=== PATIENT | female | born 1945 | race Caucasian/White ===

== ENCOUNTER 2020-03-07 07:21 | Day surgery (SDC) | payer MEDICARE, BC, SELFPAY ==
[2020-02-27 10:57] VITALS: BMI 22.0
[2020-03-07] VITALS (7 sets, daily range): BP systolic 88–141; BP diastolic 50–77; PULSE 68–80; RESP 16; TEMP 36.7–37.2; O2SAT 97–99; BMI 21.4
[2020-03-07] MEDS: Lactated Ringers 1,000 ML 100 ML IV (08:00)
--- NOTE | 2020-03-07 08:30 | EGD_PTH ---
PATIENT: ANGELLA NELSON LOC: [facility] U#:[id number] AGE/SX: 74/F ROOM: RE03/07/[address]: Dr. Jesus Shipman MD : 1945 BED: DIS: 03/07/2020 SPEC #: [id number] RECD: 03/07/20 10:00 STATUS: VERÓNICA GABRIELRayne #: [id number] ABELARDO: 03/07/20 08:[address]: Jesus Shipman DEPT: SURGICAL PATHOLOGY RECD BY: Brisa Claros ENTERED: 03/07/20 11:22 SP TYPE: EGD BIOPSY OTHR DR: Dr. Krystal Hernández DO Tissues: A - Duodenum, NOS B - Gastric mucous membrane C - Esophagus, NOS D - Esophagus, NOS Procedures: Special Stain Group II Surgery Specimen Level IV Alcian Blue/PAS (control) HEADER OPERATION: EGD ([facility] [place]) PRE-OP DIAGNOSIS: Indigestion TISSUE SUBMITTED: A - Duodenal biopsy, B - Antrum biopsy for H. pylori and path, C - Distal esophagus biopsy, D - Mid esophagus biopsy MICROSCOPIC DIAGNOSIS A. Duodenum, biopsy: No pathologic change. B. Gastric antrum, biopsy: Chronic gastritis. See comment. C. Distal esophagus, biopsy: Gastroesophageal junction mucosa with mild chronic inflammation. No evidence of goblet cell metaplasia. See comment. D. Mid esophagus, biopsy: Fragments of benign squamous mucosa. No evidence of inflammation. AM:walker 03/10/2020 COMMENT B. The results of immunohistochemistry for Helicobacter pylori will be reported separately ([id number]). C. Alcian blue/PAS stain with matched control supports the above diagnosis. MICROSCOPIC DESCRIPTION Slides are reviewed. GROSS DESCRIPTION A - Received in fixative is one container labeled with the patient's name and designated duodenum biopsy. The specimen consists of one irregular fragment of light jensen soft tissue that measures 0.5 x 0.2 x 0.1 cm. The specimen is totally submitted in one cassette. B - Received in fixative is one container labeled with the patient's name and designated antrum biopsy. The specimen consists of one irregular fragment of light jensen soft tissue that measures 0.3 x 0.2 x 0.1 cm. The specimen is totally submitted in one cassette. C - Received in fixative is one container labeled with the patient's name and designated distal esophagus biopsy. The specimen consists of two irregular fragments of light jensen soft tissue that in aggregate measure 0.7 x 0.5 x 0.1 cm. The specimen is totally submitted in one cassette. D - Received in fixative is one container labeled with the patient's name and designated mid esophagus biopsy. The specimen consists of one irregular fragment of light jensen soft tissue that measures 0.6 x 0.5 x <0.1 cm. The specimen is totally submitted in one cassette. / AM:walker 03/07/20 TC:3 CPT: 26888 x4, 05900
--- NOTE | 2020-03-07 08:30 | IMM_PTH ---
PATIENT: ANGELLA NELSON LOC: [facility] U#:[id number] AGE/SX: 74/F ROOM: RE03/07/[address]: Dr. Jesus Shipman MD : 1945 BED: DIS: 03/07/2020 SPEC #: [id number] RECD: 03/07/20 11:43 STATUS: VERÓNICA REQ #: [id number] ABELARDO: 03/07/20 08:[address]: Jesus Shipman DEPT: IMMUNOHISTOCHEMISTRY RECD BY: Mary Grace Ball ENTERED: 03/07/20 11:45 SP TYPE: IMMUNO OTHR DR: Dr. Krystal Hernández, DO Tissues: B - Stomach, NOS Procedures: H Pylori (initial) PHYSICIAN & INSTITUTION [place] [address] SPECIMEN INFORMATION: Tissue Source: B - Antrum biopsy Clinical Info: Indigestion Specimen Number: [id number] CPT code: 76717 METHODOLOGY: Deparaffinized sections of prefer/formalin-fixed tissue or PAP/DQ stained slides are incubated with monoclonal/polyclonal antibodies/oligonucleotide probes. Localization is made via biotin free immunoperoxidase method. Appropriate controls are performed and reacted as expected. Results on target cell population are indicated in the following table: RESULTS: ANTIBODY / CLONE RESULT Block B H Pylori (polyclonal) negative These tests were developed and their performance characteristics determined by [facility]. They may not have been cleared or approved by the U.S. Food and Drug Administration. The FDA has determined that such clearance or approval is not necessary. INTERPRETATION: B. Antrum, biopsy: Negative for Helicobacter pylori organisms. AM:walker 03/10/2020
--- NOTE | 2020-03-07 09:22 | PCM.HP.BLA ---
Problem List (1) Indigestion Status: Acute History and Physical Date of Admission: 03/07/20 Intake Visit Reasons: Discuss EGD/Weight Loss Chief Complaint: weight loss, abd pain Loan Consultant Required: No Is patient in pain?: No Allergies acetaminophen [From Darvocet-N] Allergy (Verified 02/06/16 10:06) Unknown aspirin [From Fiorinal] Allergy (Verified 02/06/16 10:06) Unknown butalbital [From Fiorinal] Allergy (Verified 02/06/16 10:06) Unknown caffeine [From Fiorinal] Allergy (Verified 02/06/16 10:06) Unknown chlorpromazine [From Thorazine] Allergy (Verified 02/06/16 10:06) Unknown etodolac [From Lodine] Allergy (Verified 02/06/16 10:06) Unknown Gadolinium-MRI Contrast Medium Allergy (Verified 02/06/16 10:06) Other hydrocodone [From Vicodin] Allergy (Verified 02/06/16 10:06) Unknown methylprednisolone [From Solu-Medrol] Allergy (Verified 02/06/16 10:06) Unknown nabumetone [From Relafen] Allergy (Verified 02/06/16 10:06) Unknown prednisone Allergy (Verified 02/06/16 10:06) Other promethazine [From Phenergan] Allergy (Verified 02/06/16 10:06) Unknown propoxyphene [From Darvocet-N] Allergy (Verified 02/06/16 10:06) Unknown verapamil Allergy (Verified 02/06/16 09:59) Unknown ibuprofen Adverse Reaction (Verified 02/06/16 10:06) Upset Stomach KEYA-60 Allergy (Uncoded 02/06/16 10:06) Unknown Medications Calcium Carbonate [Tums] 500 mg PO Q6H PRN PRN 08/22/15 [History Confirmed 02/27/20] Potassium Chloride [K-Dur] 20 meq PO BID #60 tab 08/22/15 [Rx Confirmed 02/27/20] Aspirin/Acetaminophen/Caffeine [Excedrin Extra Strength Caplet] 1 ea PO PRN PRN 02/06/16 [History Confirmed 02/27/20] ascorbic acid (vitamin C) 1,000 mg tablet 1 g PO Q6H 02/27/20 [History Confirmed 02/27/20] glucosamine-chondroitin 250 mg-200 mg tablet 2 tab PO TID 02/27/20 [History] magnesium oxide 400 mg PO DAILY 02/27/20 [History Confirmed 02/27/20] multivitamin 1 tab PO DAILY 02/27/20 [History Confirmed 02/27/20] omega-3 fatty acids 1,000 mg capsule 1,000 mg PO DAILY 02/27/20 [History Confirmed 02/27/20] pantoprazole 40 mg tablet,delayed release 40 mg PO DAILY tab 02/27/20 [History Confirmed 02/27/20] vitamin B complex 1 cap PO DAILY 02/27/20 [History Confirmed 02/27/20] Is last menstrual period known: No Post menopausal: Yes Patient : No PFSH Medical History (Updated 02/27/20 @ 11:[address] Jesus Shipman MD) Indigestion (Acute) Lung nodule (Acute) Vitamin D deficiency (Acute) Dysphagia (Acute) Lymphadenopathy (Acute) History of breast cancer (Acute) Unintentional weight loss (Acute) Cervical radiculopathy (Acute) History of supraventricular tachycardia (Chronic) Benign essential hypertension (Chronic) Surgical History (Updated 02/27/20 @ 10:56 by Roxi Faust) History of ventral hernia repair (Acute ~2017) History of tubal ligation (Acute) History of lumpectomy (Acute) History of hysterectomy (Acute) History of hemorrhoidectomy (Acute) History of esophagogastroduodenoscopy (EGD) (Acute) History of dilation and curettage (Acute) History of cardiac catheterization (Acute) History of breast biopsy (Acute) History of appendectomy (Acute) History of colonoscopy (Acute ~2019) Family History Father CVA (cerebral vascular accident) Sister Colon cancer Social History (Updated 02/27/20 @ 11:[address] Jesus Shipman MD) Smoking Status: Never smoker HPI HPI HPI: ANGELLA NELSON, is a 74 F who presents to the office today for surgical consultation regarding retrosternal discomfort and burning sensation and concerns this may be contributing to her weight loss. She was referred by Dr. Krystal Hernández and a written copy of my surgical consult and recommendations will be returned to her.. The patient reports that she has had a previous colonoscopy with polypectomy which according to her demonstrated some degree of malignancy within the polyp but completely resected. She states that she did not require any additional surgical treatment of the colon nor any additional adjuvant treatment. She also 2013 had a left breast lumpectomy. 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 She received radiotherapy but according to her no additional treatment. She has had a variety of concerns. She complains of left lower quadrant discomfort and right lower quadrant discomfort and a palpable mass in the epigastrium and retrosternal burning discomfort and burning discomfort extending right through the midline of her abdomen down to the pubic bone is if she has a urinary tract infection. January 24, 2020 Dr. Govind Mary at [facility] performed a colonoscopy. This was done at patient request with no sedative. A 3 mm polyp was seen in the ascending:. Some hemorrhoids noted. The pathology showed colonic mucosa with no pathologic diagnosis. Repeat colonoscopy at 5 years recommended. It is of additional note that previously February 10, 2016 because of a symptomatic right lower quadrant ventral incisional hernia related to a very remote open appendectomy I performed a incisional herniorrhaphy. The patient had requested that no clips be used and that no mesh be used. I performed the repair with simple sutures of #1 Nurolon. Fortunately she has not had any evidence of recurrence. She is being expressly referred for consideration as to whether she would benefit from a esophagogastroduodenoscopy. The patient states that approximately December 2019 she had a PET scan performed from a mobile unit that came to [facility]. I do not have the report of that study. The patient states that she periodically gets them because she has a family history of colon cancer. She states that she has had a 30 pound weight loss though there may be some suggestion that recently she has gained back a few pounds. For her retrosternal discomfort she does use some Pepto-Bismol. She denies documented history of peptic ulcer disease HPI HPI HPI: ANGELLA NELSON, is a 74 F who presents to the office today for ROS General General: Yes weight change, appetite and fatigue; no colon cancer, breast cancer or weakness HEENT HEENT: No difficulty swallowing, eye injury, eye surgery, swollen glands or hoarseness Endo Endocrine: No thyroid disease, diabetes mellitus, thyroid cancer, Hair loss, heat intolerance or cold intolerance Musc Musculoskeletal: Yes arthritis; no back problems, rheumatoid arthritis, gout or joint pain Cardio Cardiovascular: Yes heart disease and high blood pressure; no murmur, pacemaker, atrial fibrillation, heart attack, heart stent, palpitations, shortness of breat with exertion or chest pain Psych Psychiatric: No depression, anxiety or hearing voices Resp Respiratory: No shortness of breath, No sleep apnea, No cough, No COPD, No asthma, No emphysema, No wheezing Gastro Gastrointestinal: Yes abdominal pain, Yes nausea or vomiting, No diarrhea, No constipation, No blood in stool, No acid reflux, No hemorrhoids, No ulcers, No gallbladder problem, No black,tarry stools Brent Hematologic: No blood thinners, No blood disorders, No bleeding, No anemia, No blood clots Neuro Neurologic: No weakness Exam Const General: cooperative, healthy appearing, comfortable, no acute distress Nutritional Appearance: underweight Orientation: alert, awake HENLA Head: normal to inspection Chest Chest palpation & inspection: normal inspection of the chest Resp Effort & Inspection: normal respiratory effort Auscultation: clear to auscultation bilaterally Cardio Rate: regular rate Rhythm: regular rhythm Heart Sounds: no murmurs GI Palpation: soft, no hepatosplenomegaly Auscultation: normal bowel sounds Other: Patient is examined both upright and supine. She has scarring in the right lower quadrant but no evidence of rerecurrent incisional hernia At the area of left lower quadrant discomfort I can feel no masses or weakness At the epigastric area overlying the xiphoid process she has a 1.5 to 2 cm diameter rubbery mobile subcutaneous fibrofatty mass. This does not feel like a hernia. The remainder of her abdominal exam is quite benign Skin General: no rashes or lesions noted Neuro Cognition: normal cognition Extrem General: no calf tenderness Psych Affect: animated Assessment & Plan Problems 1. Indigestion K30 Plan Etiology of the patient's retrosternal discomfort in total burning discomfort throughout the entire mid abdomen is not clear. I would concur that she would benefit from a esophagogastroduodenoscopy. I would anticipate very careful inspection of the duodenum antrum GE junction as well as entire esophagus. I would anticipate biopsies for H. pylori and eosinophilic esophagitis. The patient initially requested that this be performed with no anesthetic. That makes me somewhat uncomfortable and I think it would be difficult to achieve that without having her coughing and uncomfortable. I have proposed for her monitored anesthesia care with very light utilization of propofol as well as generous oral topical anesthetic. She is aware of the technique, benefit, risk, alternatives. She has had an opportunity to ask and have questions answered. We will schedule and proceed at her discretion. She will then have ongoing primary care follow-up with Dr. Hernández Copy: Dr. Krystal Shipman M.D., F.A.C.S. I have re-examined the patient. There are no clinical changes since date of exam. Procedure Criteria Procedure Type: Elective COVID Risk Discussion: The surgeon/proceduralist and patient have discussed in detail the risk of exposure to and/or potential harm posed by the COVID-19 virus with having a surgery/procedure at this time versus the risk of delaying the surgery/procedure. It is not possible to know either the risk of delaying the surgery or procedure or chance of getting an infection with perfect accuracy, but a joint decision was made between the patient and the surgeon/proceduralist to proceed at this time with the scheduled surgery/procedure as indicated on the consent form.
--- NOTE | 2020-03-07 09:50 | OP.CCLET_ITS ---
03/07/2020 Krystal Hernández Do Re : Upper GI endoscopy procedure for Lyly Mac Dear Edgar This procedure was performed on Saturday, March 07, 2020. My impressions and recommendations are as follows: Impressions : - Reflux esophagitis. Biopsied. - Normal mid esophagus. Biopsied. - Small hiatal hernia. - Erythematous mucosa in the antrum. Biopsied. - Normal examined duodenum. Biopsied. Recommendations : - Await pathology results. - Repeat upper endoscopy. - Resume previous diet. - Continue present medications. - Telephone my office for pathology results in 1 week. My findings are described in the full procedure note, which is enclosed. If I can be of further assistance, please feel free to contact me at Doctor phone number(s): Work: . Sincerely, Jesus Shipman MD 03/07/2020 9:50:11 AM This report has been signed electronically.
--- NOTE | 2020-03-07 09:50 | OP.EGD_ITS ---
Patient Name: Lyly Mac Procedure Date: 03/07/2020 9:21 AM Date of : 1945 Age: 74 Procedure: Upper GI endoscopy Indications: Heartburn Providers: Jesus Shipman MD Referring MD: Krystal Hernández Do Medicines: See the Anesthesia note for documentation of the administered medications Complications: No immediate complications. Procedure: Pre-Anesthesia Assessment: - Prior to the procedure, a History and Physical was performed, and patient medications and allergies were reviewed. The patient's tolerance of previous anesthesia was also reviewed. The risks and benefits of the procedure and the sedation options and risks were discussed with the patient. All questions were answered, and informed consent was obtained. Prior Anticoagulants: The patient has taken no previous anticoagulant or antiplatelet agents. ASA Grade Assessment: II - A patient with mild systemic disease. After reviewing the risks and benefits, the patient was deemed in satisfactory condition to undergo the procedure. After obtaining informed consent, the endoscope was passed under direct vision. Throughout the procedure, the patient's blood pressure, pulse, and oxygen saturations were monitored continuously. The gastroscope was introduced through the mouth, and advanced to the second part of duodenum. The upper GI endoscopy was accomplished without difficulty. The patient tolerated the procedure well. Scope In: 9:36:22 AM Scope Out: 9:44:11 AM Total Procedure Duration Time 0 hours 7 minutes 49 seconds Findings: Esophagitis with no bleeding was found 38 cm from the incisors. Biopsies were taken with a cold forceps for histology. The mid esophagus was normal. Biopsies were taken with a cold forceps for histology. A small hiatal hernia was present. Diffuse mildly erythematous mucosa without bleeding was found in the gastric antrum. Biopsies were taken with a cold forceps for histology. The examined duodenum was normal. Biopsies were taken with a cold forceps for histology. Impression: - Reflux esophagitis. Biopsied. - Normal mid esophagus. Biopsied. - Small hiatal hernia. - Erythematous mucosa in the antrum. Biopsied. - Normal examined duodenum. Biopsied. Recommendation: - Await pathology results. - Repeat upper endoscopy. - Resume previous diet. - Continue present medications. - Telephone my office for pathology results in 1 week. Procedure Code(s): --- Professional --- 28283, Esophagogastroduodenoscopy, flexible, transoral; with biopsy, single or multiple Diagnosis Code(s): --- Professional --- K21.0, Gastro-esophageal reflux disease with esophagitis K44.9, Diaphragmatic hernia without obstruction or gangrene K31.89, Other diseases of stomach and duodenum R12, Heartburn CPT copyright 2017 [employer]. All rights reserved. The codes documented in this report are preliminary and upon prescription clerk lenses review may be revised to meet current compliance requirements. Jesus Shipman MD 03/07/2020 9:50:11 AM This report has been signed electronically. Number of Addenda: 0 Note Initiated On: 03/07/2020 9:21 AM
== END 2020-03-07 10:42 | disposition home or self-care (01) ==
LOC: EN 07:21 → AC 07:21
PROVIDERS: PCP Internal Medicine; Referring Provider Internal Medicine; Visit Provider Surgery
PROC: 0DJ08ZZ Inspection of Upper Intestinal Tract, Via Natural or Artificial Opening Endoscopic (ICD-10-PCS; CPT 43235; principal; 2020-03-07 08:25)
DX: K21.00 Gastro-esophageal reflux disease with esophagitis, without bleeding (principal); K44.9 Diaphragmatic hernia without obstruction or gangrene; K31.89 Other diseases of stomach and duodenum; K30 Functional dyspepsia; Z79.82 Long term (current) use of aspirin; Z80.0 Family history of malignant neoplasm of digestive organs; Z88.5 Allergy status to narcotic agent; Z88.6 Allergy status to analgesic agent; Z88.8 Allergy status to other drugs, medicaments and biological substances; I10 Essential (primary) hypertension
CPT/HCPCS: 43239; 87426; 88305; 88313; 88342; C9803; J7120; J2405

== ENCOUNTER → 2020-06-17 11:22 | Outpatient (CLI) | payer MEDICARE, BC, SELFPAY ==
[2020-06-17 09:50] VITALS: BMI 21.4
[2020-06-17 11:28] LABS: Bacteria 0 SEEN /hpf (None Seen); White Blood Cells 0 SEEN /hpf (0-5)
[2020-06-17 12:04] LABS: Absolute Lymphocyte Count 1.34 X10^3/uL (0.83-4.51); Absolute Neutrophil Count 2.4 X10^3/uL (2.0-7.7); Basophil# 0.04 X10^3/uL; Eosinophils% 2.4 % (0-5); Hematocrit 41.2 % (37-47); Hemoglobin 13.3 g/dL (12.0-15.0); Lymphocyte # 1.34 X10^3/ul (0.83-4.51); Lymphocyte % 32.1 % (19-41); Mean Corp Hgb Conc 32.3 g/dL (32-36); Mean Corpuscular Hgb 30.6 pg (27.0-32.0); Mean Corpuscular Volume 94.9 fL (81-99); Monocyte# 0.27 X10^3/uL; Monocyte% 6.5 % (0-10); NRBC Flagged by Analyzer 0 % (0-5); Neutrophil # 2.41 X10^3/uL (2.7-7.7); Neutrophil % 57.8 % (47-70); Platelet Count 208 K/mm3 (150-450); RBC Distribution Width SD 45.7 fl (35.1-43.9); Red Blood Count 4.34 M/mm3 (4.2-5.4); White Blood Count 4.2 K/mm3 (4.4-11.0)
[2020-06-17 12:32] LABS: ALB/GLOB Ratio 1.2 RATIO (0.9-2.4); AST(SGOT) 24 U/L (15-37); Alanine Aminotransfer ALT/SGPT 21 U/L (13-56); Alkaline Phosphatase 109 U/L (45-117); Anion Gap 6 (5-15); BUN 16 mg/dL (7-18); Calcium,Total 9.6 mg/dL (8.5-10.1); Chloride 104 mmol/L (98-107); EST Glomerular Filtration Rate 74 mL/min (>60); Est Glom Filt Rate - Afr Amer 90 mL/min (>60); Globulin 3.3 g/dL (2.2-4.2); Glucose 113 mg/dL (74-106); Potassium 3.7 mmol/L (3.5-5.1); Protein, Total 7.3 g/dL (6.4-8.2); Sodium Level 143 mmol/L (136-145)
[2020-06-17 12:44] LABS: Color, Urine Yellow (Yellow); Glucose, Dipstick Normal (Normal); Ketone-Dipstick 5 mg/dl (Negative); Leukocyte Esterase-Dipstick Negative /ul (Negative); Nitrite-Dipstick Negative (Negative); Occult Blood-Urine 50 /ul (Negative); Protein-Dipstick 15 mg/dl (Negative); Specific Gravity, Urine 1.015 (1.002-1.030); Urine Bilirubin Dipstick Negative (Negative); Urine Clarity Sl. Cloudy (Clear); Urine Urobilinogen Normal (Normal)
[2020-06-17 12:52] LABS: Mucous, Urine 1+ /hpf (<or=2+); Red Blood Cells-Urine 0-5 SEEN /hpf (0-5); Squamous Epithelial Cells - UA 0-5 SEEN /hpf (5-10)
== END ==
PROVIDERS: PCP Internal Medicine; Referring Provider Physician Assistant; Visit Provider Physician Assistant
DX: R43.2 Parageusia (principal); R10.9 Unspecified abdominal pain
CPT/HCPCS: 36415; 80053; 81001; 85025

== ENCOUNTER → 2020-06-18 14:59 | Outpatient (CLI) | payer MEDICARE, BC, SELFPAY ==
[2020-06-17 09:50] VITALS: BMI 21.4
== END ==
PROVIDERS: PCP Internal Medicine; Visit Provider Physician Assistant
DX: R43.2 Parageusia (principal)
CPT/HCPCS: 87635; C9803; U0002

== ENCOUNTER → 2020-11-27 16:07 | Outpatient (CLI) | payer MEDICARE, BC, SELFPAY ==
[2020-03-07 08:10] VITALS: BMI 21.4
--- NOTE | 2020-11-27 16:09 | BI_ITS ---
MAMMOGRAPHY - BILATERAL SCREENING REASON FOR EXAM: Female, 75 years old. Routine annual screening examination. PERTINENT HISTORY: Personal history of breast cancer. Prior left lumpectomy and radiation therapy. Prior left stereotactic breast biopsy. Sister with breast cancer. Aunt with breast cancer. TECHNIQUE: Digital bilateral breast evan (3D mammographic acquisition) in the CC and MLO projections. 2-D mediolateral oblique (MLO) and craniocaudad (CC) views of both breasts were obtained. CAD: Full Field Digital Mammography with Computer Added Detection was performed. COMPARISON: Comparison is made with prior study dated 09/08/2016. FINDINGS: Breast Composition: There are scattered areas of fibroglandular density. There are no dominant masses or suspicious calcifications. Surgical clips are seen in the deep axillary region of the left breast. Calcification is seen at the operative site. There is evidence of overlying skin thickening. No other significant abnormalities are identified. BI/SCRN MAMM (CAD)W/EVAN BILAT IMPRESSION: Status post lumpectomy in the deep upper lateral aspect of the left breast with postoperative changes and dense calcification at the operative site. Yearly follow-up mammogram recommended. (A) ASSESSMENT CATEGORY: BIRADS Category 2: Benign. A letter regarding these results will be sent to the patient by the facility within 30 days. Approximately 10% of breast cancers are not detected by mammography. A normal mammogram should not delay biopsy of a clinically suspicious abnormality. [id number] Electronically Signed: Jeff Garcia MD at 10:25 EDT , Service support ,
== END ==
PROVIDERS: PCP Internal Medicine; Referring Provider Nurse Practitioner; Visit Provider Nurse Practitioner
DX: Z12.31 Encounter for screening mammogram for malignant neoplasm of breast (principal); C50.412 Malignant neoplasm of upper-outer quadrant of left female breast; Z17.0 Estrogen receptor positive status [ER+]
CPT/HCPCS: 77063; 77067

== ENCOUNTER 2021-02-18 14:39 | Outpatient (CLI) | payer MEDICARE, BC, SELFPAY ==
--- NOTE | 2021-02-18 14:43 | CT_ITS ---
STUDY: CT ABDOMEN AND PELVIS WITHOUT CONTRAST REASON FOR EXAM: Female, 75 years old. Abdominal pain -- special attention to xyphoid RLQ abdominal wall. History of prior right lower quadrant ventral hernia repair. RADIATION DOSAGE (If Supplied By Facility): CTDIvol = ( 6.10 ) mGy, DLP = ( 266.71 ) mGycm TECHNIQUE: Transaxial images were obtained from the dome of the diaphragm to the symphysis pubis without oral contrast, and without intravenous contrast. Sagittal and coronal images were reconstructed. Individualized dose optimization techniques were used for this CT. COMPARISON: Comparison is made with prior study dated 12/01/2015. FINDINGS: The visualized lung bases are unremarkable. The visualized portions of the heart are within normal limits. The previously seen cyst along the medial peripheral aspect of the right lobe of the liver has decreased in size. It presently measures 6.3 mm. Normal gallbladder and extrahepatic biliary system. Normal spleen. Normal pancreas. Normal bilateral adrenal glands. Punctate calcification in the upper pole of the right kidney. Stable punctate calcification in the anterior pole calyx of the left kidney. Normal visualized stomach. Normal small intestine. Normal colon. The patient is status post appendectomy. There is diffuse atherosclerotic calcification of the abdominal aorta, without a demonstrated aneurysm. Normal inferior vena cava. Normal retroperitoneum. Normal urinary bladder. There is absence of the uterus consistent with a prior hysterectomy. There is evidence of a prior hernia repair in the anterior right lower quadrant. There are diffuse degenerative changes of the visualized lumbar spine. Minimal anterior listhesis of L5 on S1. CT/Abdomen/Pel W ORAL Cont Only IMPRESSION: Interval decrease in size of the peripheral cyst in the left lobe of the liver. Status post anterior abdominal wall hernia repair in the left lower quadrant. Electronically Signed: Jeff Garcia MD at 15:13 EST , Service support ,
== END 2021-02-18 23:59 | disposition short-term general hospital (02) ==
LOC: CT 14:42
PROVIDERS: Referring Provider Surgery; Visit Provider Surgery
DX: R10.9 Unspecified abdominal pain (principal)
CPT/HCPCS: 74176

== ENCOUNTER 2021-03-11 06:02 | Day surgery (SDC) | payer MEDICARE, BC, SELFPAY ==
--- NOTE | 2021-03-10 10:16 | EKG12_ITS ---
Test Reason : PRE OP Blood Pressure : / mmHG Vent. Rate : 079 BPM Atrial Rate : 079 BPM P-R Int : 146 ms QRS Dur : 072 ms QT Int : 382 ms P-R-T Axes : 082 076 074 degrees QTc Int : 438 ms Normal sinus rhythm Normal ECG Confirmed by DUYEN GASTELUM, JUANA ([id number]), editor news JULIAN PINTO ([id number]) on 03/11/2021 7:23:40 AM Referred By: Jesus Shipman Confirmed By:JUANA GELLER MD
[2021-03-10 11:16] LABS: Hematocrit 36.1 % (37-47); Hemoglobin 11.8 g/dL (12.0-15.0); Mean Corp Hgb Conc 32.7 g/dL (32-36); Mean Corpuscular Hgb 31.1 pg (27.0-32.0); Mean Corpuscular Volume 95.3 fL (81-99); Mean Platelet Vol. 10.9 fl (6.2-12.0); Platelet Count 184 K/mm3 (150-450); RBC Distribution Width CV 13.2 % (11.6-14.6); RBC Distribution Width SD 45.9 fl (35.1-43.9); Red Blood Count 3.79 M/mm3 (4.2-5.4); White Blood Count 3.4 K/mm3 (4.4-11.0)
[2021-03-10 11:53] LABS: Anion Gap 5 (5-15); BUN 16 mg/dL (7-18); BUN/Creat Ratio 22.4 RATIO (10-20); Calcium,Total 9.3 mg/dL (8.5-10.1); Chloride 108 mmol/L (98-107); Creatinine, Serum 0.71 mg/dL (0.55-1.02); EST Glomerular Filtration Rate 85 mL/min (>60); Est Glom Filt Rate - Afr Amer 102 mL/min (>60); Glucose 108 mg/dL (74-106); Potassium 3.8 mmol/L (3.5-5.1); Sodium Level 142 mmol/L (136-145)
--- NOTE | 2021-03-10 15:12 | NURSING ---
NURSE CALLED TAMERA SLADE'S OFFICE FOR UA RESULTS. OFFICE STAFF STATES UA IS NEGATIVE. DR AKINS'S OFFICE NOTIFIED OF RESULT
[2021-03-11] VITALS (10 sets, daily range): BP systolic 121–173; BP diastolic 62–85; PULSE 65–78; RESP 16–18; TEMP 36.2–36.9; O2SAT 93–100; BMI 19.5
--- NOTE | 2021-03-11 | HERN_PTH ---
PATIENT: ANGELLA NELSON [place] [facility] [place] U#:[id number] AGE/SX: 75/F ROOM: RE03/11/[address]: Dr. Jesus Shipman MD : 1945 BED: DIS: 03/11/2021 SPEC #: [id number] RECD: 03/11/21 12:31 STATUS: VERÓNICA PAPPAS #: [id number] ABELARDO: 03/11/21 00:[address]: Jesus Shipman DEPT: SURGICAL PATHOLOGY RECD BY: Nick Dumont Tissues: HERNIA Procedures: Surgery Specimen Level II HEADER OPERATION: Hernia, epigastric ventral repair with mesh PRE-OP DIAGNOSIS: Epigastric hernia, abdominal pain TISSUE SUBMITTED: Epigastric hernia sac and contents MICROSCOPIC DIAGNOSIS Soft tissue of epigastric region, excision: Fragments of fibrofatty tissue consistent with hernia sac. AM:walker 03/12/2021 MICROSCOPIC DESCRIPTION Slides are reviewed. GROSS DESCRIPTION Received in fixative is one container labeled with the patient's name and designated epigastric hernia sac. The specimen consists of multiple irregular fragments of yellow-pink fibrofatty tissue that in aggregate measure 3 x 3 x 1 cm. Serial sections do not reveal mass lesion. Product Development Engineer sections are submitted in one cassette. / AM:walker 03/11/2021 TC:5 CPT: 68348
--- NOTE | 2021-03-11 06:40 | HP.PCM_ITS ---
History and Physical Date of Admission: 03/11/21 Visit Reasons: DISCUSS CT RESULTS Chief Complaint: discuss CT Butcher Supervisor Required: No Is patient in pain?: No Allergies acetaminophen [From Darvocet-N] Allergy (Verified 03/03/21 10:06) Unknown aspirin [From Fiorinal] Allergy (Verified 03/03/21 10:06) Unknown butalbital [From Fiorinal] Allergy (Verified 03/03/21 10:06) Unknown caffeine [From Fiorinal] Allergy (Verified 03/03/21 10:06) Unknown chlorpromazine [From Thorazine] Allergy (Verified 03/03/21 10:06) Unknown etodolac [From Lodine] Allergy (Verified 03/03/21 10:06) Unknown Gadolinium-MRI Contrast Medium Allergy (Verified 03/03/21 10:06) Other hydrocodone [From Vicodin] Allergy (Verified 03/03/21 10:06) Unknown methylprednisolone [From Solu-Medrol] Allergy (Verified 03/03/21 10:06) Unknown nabumetone [From Relafen] Allergy (Verified 03/03/21 10:06) Unknown prednisone Allergy (Verified 03/03/21 10:06) Other promethazine [From Phenergan] Allergy (Verified 03/03/21 10:06) Unknown propoxyphene [From Darvocet-N] Allergy (Verified 03/03/21 10:06) Unknown verapamil Allergy (Verified 03/03/21 10:06) Unknown ibuprofen Adverse Reaction (Verified 03/03/21 10:06) Upset Stomach KEYA-60 Allergy (Uncoded 06/17/20 10:04) Unknown Medications calcium carbonate 500 mg PO Q6H PRN PRN 08/22/15 [History Confirmed 03/03/21] potassium chloride 20 meq PO BID #60 tab 08/22/15 [Rx Confirmed 03/03/21] lsbztfh-ruzjrffjlevxe-jaefncfx 1 ea PO PRN PRN 02/06/16 [History Confirmed 03/03/21] ascorbic acid (vitamin C) 1,000 mg tablet 1 g PO DAILY 02/27/20 [History Confirmed 03/03/21] glucosamine-chondroitin 250 mg-200 mg tablet 2 tab PO BID 02/27/20 [History Confirmed 03/03/21] magnesium oxide 400 mg PO DAILY 02/27/20 [History Confirmed 03/03/21] multivitamin 1 tab PO DAILY 02/27/20 [History Confirmed 03/03/21] omega-3 fatty acids 1,000 mg capsule 1,000 mg PO DAILY 02/27/20 [History Confirmed 03/03/21] vitamin B complex 1 cap PO DAILY 02/27/20 [History Confirmed 03/03/21] Leg Cramps Pm 1 tab SUBLINGUAL QHS PRN PRN 03/03/20 [History Confirmed 03/03/21] cholecalciferol (vitamin D3) 25 mcg PO DAILY 03/03/20 [History Confirmed ] cetirizine 10 mg tablet 10 mg PO DAILY tab 06/17/20 [History Confirmed 03/03/21] Is last menstrual period known: No Post menopausal: Yes Patient : No PFSH Medical History Abdominal pain Altered taste Benign essential hypertension Cervical radiculopathy Dysphagia History of breast cancer History of supraventricular tachycardia Indigestion Lung nodule Lymphadenopathy Unintentional weight loss Vitamin D deficiency Surgical History History of appendectomy History of breast biopsy History of cardiac catheterization History of colonoscopy (~2019) History of dilation and curettage History of esophagogastroduodenoscopy (EGD) History of hemorrhoidectomy History of hysterectomy History of lumpectomy History of tubal ligation History of ventral hernia repair (~2016) Family History Father CVA (cerebral vascular accident) Colon cancer Diabetes Sister Colon cancer Grandfather Colon cancer Aunt Colon cancer Mother Heart disease Social History Smoking Status: Never smoker alcohol intake: never substance use type: does not use HPI HPI HPI: ANGELLA NELSON, is a 75 F who presents to the office today for surgical follow-up of a subxiphoid tender palpable mass. I had recommended that we pursue an outpatient abdominal pelvic CT scan because of the epigastric discomfort and the shooting discomfort in the right lower quadrant. On my review of the CT scan there is a epigastric ventral hernia involving the linea alba. This is not commented upon in the CT interpretation. I also see evidence of a previous right lower quadrant spigelian hernia repair. I do not personally see any evidence of recurrence in this location. The patient is very much concerned about this epigastric area. She is also concerned about weight loss. The CT does not demonstrate findings in that regard. 02/18/2021 STUDY: CT ABDOMEN AND PELVIS WITHOUT CONTRAST REASON FOR EXAM: Female, 75 years old. Abdominal pain -- special attention to xyphoid RLQ abdominal wall. History of prior right lower quadrant ventral hernia repair. RADIATION DOSAGE (If Supplied By Facility): CTDIvol = ( 6.10 ) mGy, DLP = ( 266.71 ) mGycm TECHNIQUE: Transaxial images were obtained from the dome of the diaphragm to the symphysis pubis without oral contrast, and without intravenous contrast. Sagittal and coronal images were reconstructed. Individualized dose optimization techniques were used for this CT. COMPARISON: Comparison is made with prior study dated 12/01/2015. FINDINGS: The visualized lung bases are unremarkable. The visualized portions of the heart are within normal limits. The previously seen cyst along the medial peripheral aspect of the right lobe of the liver has decreased in size. It presently measures 6.3 mm. Normal gallbladder and extrahepatic biliary system. Normal spleen. Normal pancreas. Normal bilateral adrenal glands. Punctate calcification in the upper pole of the right kidney. Stable punctate calcification in the anterior pole calyx of the left kidney. Normal visualized stomach. Normal small intestine. Normal colon. The patient is status post appendectomy. There is diffuse atherosclerotic calcification of the abdominal aorta, without a demonstrated aneurysm. Normal inferior vena cava. Normal retroperitoneum. Normal urinary bladder. There is absence of the uterus consistent with a prior hysterectomy. There is evidence of a prior hernia repair in the anterior right lower quadrant. There are diffuse degenerative changes of the visualized lumbar spine. Minimal anterior listhesis of L5 on S1. CT/Abdomen/Pel W ORAL Cont Only IMPRESSION: Interval decrease in size of the peripheral cyst in the left lobe of the liver. Status post anterior abdominal wall hernia repair in the left lower quadrant. Electronically Signed: Jeff Garcia MD at 15:13 EST My previous note of 02/10/2021 reflect the following Intake Visit Reasons: Hernia Chief Complaint: hernia Butcher Supervisor Required: No Is patient in pain?: No Allergies acetaminophen [From Darvocet-N] Allergy (Verified 02/10/21 15:19) Unknown aspirin [From Fiorinal] Allergy (Verified 02/10/21 15:19) Unknown butalbital [From Fiorinal] Allergy (Verified 02/10/21 15:19) Unknown caffeine [From Fiorinal] Allergy (Verified 02/10/21 15:19) Unknown chlorpromazine [From Thorazine] Allergy (Verified 02/10/21 15:19) Unknown etodolac [From Lodine] Allergy (Verified 02/10/21 15:19) Unknown Gadolinium-MRI Contrast Medium Allergy (Verified 02/10/21 15:19) Other hydrocodone [From Vicodin] Allergy (Verified 02/10/21 15:19) Unknown methylprednisolone [From Solu-Medrol] Allergy (Verified 02/10/21 15:19) Unknown nabumetone [From Relafen] Allergy (Verified 02/10/21 15:19) Unknown prednisone Allergy (Verified 02/10/21 15:19) Other promethazine [From Phenergan] Allergy (Verified 02/10/21 15:19) Unknown propoxyphene [From Darvocet-N] Allergy (Verified 02/10/21 15:19) Unknown verapamil Allergy (Verified 02/10/21 15:19) Unknown ibuprofen Adverse Reaction (Verified 02/10/21 15:19) Upset Stomach KEYA-60 Allergy (Uncoded 06/17/20 10:04) Unknown Medications calcium carbonate 500 mg PO Q6H PRN PRN 08/22/15 [History Confirmed 02/10/21] potassium chloride 20 meq PO BID #60 tab 08/22/15 [Rx Confirmed 02/10/21] ciongiy-bbniizbmqcuot-fhjzfpet 1 ea PO PRN PRN 02/06/16 [History Confirmed 02/10/21] ascorbic acid (vitamin C) 1,000 mg tablet 1 g PO DAILY 02/27/20 [History Confirmed 02/10/21] glucosamine-chondroitin 250 mg-200 mg tablet 2 tab PO BID 02/27/20 [History Confirmed 02/10/21] magnesium oxide 400 mg PO DAILY 02/27/20 [History Confirmed 02/10/21] multivitamin 1 tab PO DAILY 02/27/20 [History Confirmed 02/10/21] omega-3 fatty acids 1,000 mg capsule 1,000 mg PO DAILY 02/27/20 [History Co nfirmed 02/10/21] vitamin B complex 1 cap PO DAILY 02/27/20 [History Confirmed 02/10/21] Leg Cramps Pm 1 tab SUBLINGUAL QHS PRN PRN 03/03/20 [History Confirmed 02/10/21] cholecalciferol (vitamin D3) 25 mcg PO DAILY 03/03/20 [History Confirmed 02/10/21] cetirizine 10 mg tablet 10 mg PO DAILY tab 06/17/20 [History Confirmed 02/10/21] PFSH Medical History Abdominal pain Altered taste Benign essential hypertension Cervical radiculopathy Dysphagia History of breast cancer History of supraventricular tachycardia Indigestion Lung nodule Lymphadenopathy Unintentional weight loss Vitamin D deficiency Surgical History History of appendectomy History of breast biopsy History of cardiac catheterization History of colonoscopy (~2019) History of dilation and curettage History of esophagogastroduodenoscopy (EGD) History of hemorrhoidectomy History of hysterectomy History of lumpectomy History of tubal ligation History of ventral hernia repair (~2016) Family History (Updated 02/10/21 @ 15:18 by Elsie Tuesday) Father CVA (cerebral vascular accident) Colon cancer Diabetes Sister Colon cancer Grandfather Colon cancer Aunt Colon cancer Mother Heart disease Social History (Updated 02/10/21 @ 15:19 by Elsie Tuesday) Smoking Status: Never smoker alcohol intake: never substance use type: does not use HPI HPI HPI: ANGELLA NELSON, is a 75 F who presents to the office today for for surgical consultation regarding a very tender area just below her xiphoid.. 75-year-old female. Recently complex. She has had a very long-term history of chronic abdominal pain. She was most recently seen in our office June 17, 2020 by Josefa Marti PA-C for ongoing chronic abdominal pain. Her CT scan of the abdomen pelvis and MRI the abdomen and from the outside facility was reviewed with an adrenal adenoma but no acute findings. February 2020 I had performed an upper endoscopy for demonstrating some gastritis and distal esophagitis. H. pylori was negative. She was instructed to take Protonix and Carafate. It becomes apparent that she is not been compliant with that. She stated in June that she had lost 47 pounds unintentionally. She is not aware that she has had COVID-19. She has not pursued vaccination. On this occasion she contacted the office yesterday noting acute tenderness herniation superior to her umbilicus. ROS General General: Yes weight change, fatigue, colon cancer and breast cancer; No appetite or weakness Additional Details: Lost 25lb in a year. Believes she had colon CA. States she had a breast biopsy done in the past but is unsure of the results. HEENT HEENT: Yes eye surgery; No difficulty swallowing, eye injury, swollen glands or hoarseness Additional Details: Cataract surgery Endo Endocrine: No thyroid disease, diabetes mellitus, thyroid cancer, Hair loss, heat intolerance or cold intolerance Skin Skin: No rash or changing moles Musc Musculoskeletal: No back problems, arthritis, rheumatoid arthritis, gout or joint pain Cardio Cardiovascular: No murmur, pacemaker, heart disease, atrial fibrillation, high blood pressure, heart attack, heart stent, palpitations, shortness of breat with exertion or chest pain Psych Psychiatric: No depression, anxiety or hearing voices Resp Respiratory: No shortness of breath, No sleep apnea, No cough, No COPD, No asthma, No emphysema and No wheezing Gastro Gastrointestinal: Yes abdominal pain, No nausea or vomiting, No diarrhea, No constipation, No blood in stool, No acid reflux, No hemorrhoids, No ulcers, No gallbladder problem and No black,tarry stools Additional Details: Pt states she is having bright yellow stool Brent Hematologic: No blood thinners, No blood disorders, No bleeding, No anemia and No blood clots Neuro Neurologic: No system reviewed and no additional complaints, except as documented, No as per HPI, No abnormal gait, No abnormal hearing, No abnormal movements, No abnormal speech, No behavioral changes, No burning sensations, No confusion, No convulsions, No disequilibrium, No dizziness, No localized weakness, No frequent falls, No headache(s), No lack of coordination, No loss of vision, No memory loss, No numbness, No other visual disturbances, No radicular pain, No restless legs, No sensory deficit, No syncope, No tingling, No tremor(s), No weakness and No other Exam Resp Effort & Inspection: normal respiratory effort Auscultation: clear to auscultation bilaterally Cardio Rate: regular rate Rhythm: regular rhythm GI Other: The patient is examined upright and supine. Just at the inferior edge of her xiphoid process there is a 1.2 cm diameter rubbery fibrous tenderness which is more prominent with her being upright and less prominent for sure when she is supine. It is tender when she is upright. There is no erythema. The right lower quadrant area at the suture repair of her spigelian hernia has some slightly overlapping subcutaneous skin. She is complaining of shooting p ain but I cannot detect any focal defect in that area. Other: With nursing in attendance throughout I cannot tacked any inguinal weakness or defect or tenderness bilaterally Assessment and Plan Assessment and Plan (1) Hernia: (2) Abdominal pain: Status: Acute Qualifiers: Abdominal location: epigastric Qualified Code(s): R10.13 - Epigastric pain Plan Details Other Orders: Orders: Abdomen/Pel W ORAL Cont Only Today R10.9 Additional Comments: Epigastric abdominal pain superficial localized just inferior to the xiphoid process. Possible lipoma though concerning for possible small ventral hernia Shooting pain right lower quadrant with radiation down the right leg of undetermined etiology. No inguinal defects identified. I cannot detect any suggestion of recurrent right lower quadrant spigelian hernia At this point I recommend an oral contrasted CT scan with careful inspection of the abdominal wall at the xiphoid area and at the right lower quadrant area. We will then have the patient return to the office to discuss potential options. Jesus Shipman M.D., F.A.C.S. ROS General General: Yes weight change, fatigue, colon cancer and breast cancer; No appetite or weakness Additional Details: Lost 25lb in a year. Believes she had colon CA. States she had a breast biopsy done in the past but is unsure of the results. HEENT HEENT: Yes eye surgery; No difficulty swallowing, eye injury, swollen glands or hoarseness Additional Details: Cataract surgery Endo Endocrine: No thyroid disease, diabetes mellitus, thyroid cancer, Hair loss, heat intolerance or cold intolerance Skin Skin: No rash or changing moles Musc Musculoskeletal: No back problems, arthritis, rheumatoid arthritis, gout or joint pain Cardio Cardiovascular: No murmur, pacemaker, heart disease, atrial fibrillation, high blood pressure, heart attack, heart stent, palpitations, shortness of breat with exertion or chest pain Psych Psychiatric: No depression, anxiety or hearing voices Resp Respiratory: No shortness of breath, No sleep apnea, No cough, No COPD, No asthma, No emphysema and No wheezing Gastro Gastrointestinal: Yes abdominal pain, No nausea or vomiting, No diarrhea, No constipation, No blood in stool, No acid reflux, No hemorrhoids, No ulcers, No gallbladder problem and No black,tarry stools Additional Details: Pt states she is having bright yellow stool Brent Hematologic: No blood thinners, No blood disorders, No bleeding, No anemia and No blood clots Neuro Neurologic: No system reviewed and no additional complaints, except as documented, No as per HPI, No abnormal gait, No abnormal hearing, No abnormal movements, No abnormal speech, No behavioral changes, No burning sensations, No confusion, No convulsions, No disequilibrium, No dizziness, No localized weakness, No frequent falls, No headache(s), No lack of coordination, No loss of vision, No memory loss, No numbness, No other visual disturbances, No radicular pain, No restless legs, No sensory deficit, No syncope, No tingling, No tremor(s), No weakness and No other Assessment and Plan Assessment and Plan (1) Ventral hernia: Status: Acute Qualifiers: Obstruction and gangrene presence: without obstruction or gangrene Qualified Code(s): K43.9 - Ventral hernia without obstruction or gangrene Plan - Dr. Jesus Shipman MD: Epigastric ventral hernia. I recommend direct approach with likely Ventralex mesh repair. She is aware of technique, benefit, risk of alternatives. I do not believe that this is etiologic to her weight loss. She is aware of this as well. She had an upper and lower endoscopy a year ago. She did have some esophagitis and gastritis and medication was recommended. She is not particularly complaining of postprandial discomfort she claims that she is eating. Her weight loss seems like it is more on the medical side of things. I am not detecting a surgical etiology She has had an opportunity ask and have questions answered. We will schedule procedure at her discretion. Jesus Shipman M.D., Vianey. I have re-examined the patient. There are no clinical changes since date of exam. Jesus Shipman M.D., [email or web address].[email or web address].
[2021-03-11] MEDS: Lactated Ringers 1,000 ML 30 ML IV ×2 (06:55→09:31)
[2021-03-11] MEDS: Cefazolin 2 GM in 0.9% Normal Saline 100 ML IV (07:24)
[2021-03-11] MEDS: Bupivacaine Mpf 0.5% 30 ML VIAL (08:14)
--- NOTE | 2021-03-11 08:21 | PCM.OPRPT ---
Problems Associated Problem List Diagnoses (1) Ventral hernia: Report of Operation Date of Procedure: 03/11/21 Pre-Operative Diagnosis: Symptomatic incarcerated epigastric ventral hernia Post-Operative Diagnosis: Same Surgery/Procedure Performed:: Ventral herniorrhaphy with 4.[address] mesh, reference [id number], lot [id number], expiry date 05/04/2022 Description of Surgical Findings:: Timeout informed consent was obtained. 75-year-old female was taken to the operating place upon the table underwent general anesthesia. Ancef 2 g were given intravenously. Epigastric area was sterilely prepped and draped. Transverse incision made directly over the palpable bulge. Sharp and blunt dissection was used to identify preperitoneal fatty tissue within the linea although hernia. Hernia sac and contents were resected using electrocautery. The edges of the fascia identified. The fascial defect measured approximately 1.4 cm in diameter. A 4.[address] mesh was wetted and then nicely inserted it opened quite readily. The tails were secured with 0 Nurolon. The fascia was approximated with simple sutures of 0 Nurolon. Excellent approximation was achieved. The subcutaneous tissues approximated up to 3-0 Vicryl. Skin edges approximated running subcuticular 4-0 Monocryl. Steri-Strips Telfa OpSite dressings applied. The periincisional area and fascia was anesthetized with 25 cc of 0.5% Marcaine Sponge and instrument and needle counts were reported to the surgeon to be correct. Specimen hernia sac and contents. Drains none. Blood loss minimal. The patient was taken to the recovery area in satisfactory condition without apparent complication Jesus Shipman M.D., F.A.C.S. Surgeon: Jesus Shipman Type of Anesthesia: General and Local Anesthesiologist: [place]
--- NOTE | 2021-03-11 08:29 | EX.PCM.DISCH ---
Discharge Instructions Procedure General Surgery Diet Discharge Diet: Light diet - advance as tolerated (if you have questions about your diet instructions, please talk to you doctor.) Activity Discharge Activity: May Not Drive (for 3-5 days or while taking narcotic pain medicine.) May shower in (days): 1 Lifting Restrictions: 10 pounds Dressing / Incision Call your doctor if your incision/area has: Continuous Slow Oozing, Sudden Increased Bleeding, Increased Pain/ Swelling, Increased Redness and Foul Smelling Discharge Call your doctor if you observe: Fever of 101 or Higher Suture Line Care: Avoid Pulling/Pushing and Avoid Pinching/Bending Additional Dressing/Incision Instructions:: Change or remove dressing in 4 days. Leave steri-strips in place for 1 week. Follow Up Care Please Follow Up With: Jesus Shipman MD When: Call [phone] to make an appointment to be seen in about 10 days. Test Results: Test results from this visit will be discussed in further detail at your follow-up appointment, if applicable. Discharge Plan Admission Primary Reason for Your Visit: Incarcerated epigastric hernia Attending Provider: Jesus Shipman Discharge Orders/Prescriptions Prescriptions: Continued glucosamine-chondroitin 250 mg-200 mg tablet 250-200 mg tablet 2 tab PO BID RF: 0 magnesium oxide 400 mg magnesium capsule 400 mg PO DAILY RF: 0 omega-3 fatty acids [Fish Oil Concentrate] 1,000 mg capsule 1,000 mg PO DAILY RF: 0 ascorbic acid (vitamin C) 1,000 mg tablet 1 g PO DAILY RF: 0 calcium carbonate [Tums] 500 MG tablet 500 mg PO Q6H PRN PRN (Reason: antacid) RF: 0 potassium chloride 20 MEQ tablet 20 meq PO BID Qty: 60 RF: 0 ysqidhi-lhbpidcirmzua-jlitmxvq 1 EACH tablet 1 ea PO PRN PRN (Reason: MIGRAINES) RF: 0 cholecalciferol (vitamin D3) 25 MCG capsule 25 mcg PO DAILY RF: 0 flaxseed oil 1,000 mg Capsule 1,000 mg PO DAILY RF: 0 zinc 50 mg Tablet 50 mg PO DAILY RF: 0 vitamin E 100 unit Tablet 400 unit PO DAILY RF: 0 cyanocobalamin (vitamin B-12) 25 mcg Tablet 50 mcg PO DAILY RF: 0 turmeric 400 mg Capsule 400 mg PO DAILY RF: 0 Quercetin 500 mg PO/SL DAILY RF: 0 Referrals / Follow Up: TAMERA SLADE [Other]
[2021-03-11] MEDS: LORazepam 2 MG/ML Syringe 1 MG IV (10:42)
== END 2021-03-11 23:59 | disposition home or self-care (01) ==
LOC: SDC 06:02 → AC 06:03
PROVIDERS: Referring Provider Surgery; Visit Provider Surgery
PROC: (CPT 49561; principal; 2021-03-11 07:15)
DX: K43.7 Other and unspecified ventral hernia with gangrene (principal); I10 Essential (primary) hypertension; Z80.0 Family history of malignant neoplasm of digestive organs; K76.89 Other specified diseases of liver; R10.31 Right lower quadrant pain; D35.00 Benign neoplasm of unspecified adrenal gland; Z85.3 Personal history of malignant neoplasm of breast
CPT/HCPCS: 49561; 36415; 80048; 85027; 87426; 88302; 93005; C9803; J7120; C1781; J2405

== ENCOUNTER → 2021-11-30 | Outpatient (CLI) | payer MEDICARE, BC, SELFPAY ==
--- NOTE | 2021-11-30 13:56 | BI_ITS ---
MAMMOGRAPHY - BILATERAL SCREENING REASON FOR EXAM: Female, 76 years old. Routine annual screening examination. PERTINENT HISTORY: Personal history of breast cancer. The patient is status post left lumpectomy and radiation treatment. Sister with breast cancer. Aunt with breast cancer. TECHNIQUE: Digital bilateral breast evan (3D mammographic acquisition) in the CC and MLO projections. 2-D mediolateral oblique (MLO) and craniocaudad (CC) views of both breasts were obtained. CAD: Full Field Digital Mammography with Computer Added Detection was performed. COMPARISON: Comparison is made with prior examination dated 11/27/2020 and 09/08/2016. FINDINGS: Breast Composition: There are scattered areas of fibroglandular density. There are no dominant masses or suspicious calcifications. A surgical clip is seen in the axillary region of the left breast. No other significant abnormalities are identified. There has been no significant change since the prior study. BI/SCRN MAMM (CAD)W/EVAN BILAT IMPRESSION: Stable bilateral screening mammogram. Yearly follow-up mammogram recommended. (A) ASSESSMENT CATEGORY: BIRADS Category 2: Benign. A letter regarding these results will be sent to the patient by the facility within 30 days. Approximately 10% of breast cancers are not detected by mammography. A normal mammogram should not delay biopsy of a clinically suspicious abnormality. [id number] Electronically Signed: Jeff Garcia MD at 14:48 EDT ,
== END | disposition home or self-care (01) ==
LOC: OPBI 13:54
PROVIDERS: Visit Provider Internal Medicine Hematology & Oncology
DX: Z12.31 Encounter for screening mammogram for malignant neoplasm of breast (principal); Z92.3 Personal history of irradiation; Z80.3 Family history of malignant neoplasm of breast
CPT/HCPCS: 77063; 77067

== ENCOUNTER 2022-06-18 10:05 | Day surgery (SDC) | payer MEDICARE, BC, SELFPAY ==
[2022-06-18] VITALS (7 sets, daily range): BP systolic 76–135; BP diastolic 41–94; PULSE 61–112; RESP 12–18; TEMP 36.1–36.8; O2SAT 93–100; BMI 17.3
--- NOTE | 2022-06-18 10:20 | HP.PCM_ITS ---
History and Physical Date of Admission: 06/18/22 Visit Reasons:?Abdominal Pain Chief Complaint: abdominal pain Allergies acetaminophen [From Darvocet-N] Allergy (Verified 03/18/21 14:34) Unknownaspirin [From Fiorinal] Allergy (Verified 03/18/21 14:34) Unknownbutalbital [From Fiorinal] Allergy (Verified 03/18/21 14:34) Unknowncaffeine [From Fiorinal] Allergy (Verified 03/18/21 14:34) Unknownchlorpromazine [From Thorazine] Allergy (Verified 03/18/21 14:34) Unknowndiatrizoic acid Allergy (Verified 05/27/22 12:36) NEEDS FOLLOW-UPetodolac [From Lodine] Allergy (Verified 03/18/21 14:34) UnknownGadolinium-MRI Contrast Medium Allergy (Verified 03/18/21 14:34) Otherhydrocodone [From Vicodin] Allergy (Verified 03/18/21 14:34) Unknownmethylprednisolone [From Solu-Medrol] Allergy (Verified 03/18/21 14:34) Unknownnabumetone [From Relafen] Allergy (Verified 03/18/21 14:34) Unknownprednisone Allergy (Verified 03/18/21 14:34) Otherpromethazine [From Phenergan] Allergy (Verified 03/18/21 14:34) Unknownpropoxyphene [From Darvocet-N] Allergy (Verified 03/18/21 14:34) Unknownverapamil Allergy (Verified 03/18/21 14:34) Unknownibuprofen Adverse Reaction (Verified 03/18/21 14:34) Upset Stomach Medications calcium carbonate 200 mg calcium (500 mg) chewable tablet (Tums) 500 mg PO Q6H PRN PRN antacid 08/22/15 [History Confirmed 06/07/22] potassium chloride 20 mEq tablet,extended release(part/cryst) 20 meq PO BID #60 tabs 08/22/15 [Rx Confirmed 06/07/22] jpuinbd-nwjnxfhewxwpi-gzmhmxww 250 mg-250 mg-65 mg tablet 1 ea PO PRN PRN MIGRAINES 02/06/16 [History Confirmed 06/07/22] ascorbic acid (vitamin C) 1,000 mg tablet 1 g PO DAILY 02/27/20 [History Confirmed 06/07/22] glucosamine-chondroitin 250 mg-200 mg tablet (Osteo Bi-Flex) 2 tab PO BID 02/27/20 [History Confirmed 06/07/22] magnesium oxide 400 mg PO DAILY 02/27/20 [History Confirmed 06/07/22] omega-3 fatty acids 1,000 mg capsule (Fish Oil Concentrate) 1,000 mg PO DAILY 02/27/20 [History Confirmed 06/07/22] cholecalciferol (vitamin D3) 25 mcg (1,000 unit) capsule 25 mcg PO DAILY 03/03/20 [History Confirmed 06/07/22] Quercetin 500 mg PO/SL DAILY 03/06/21 [History Confirmed 06/07/22] cyanocobalamin (vitamin B-12) 25 mcg tablet 50 mcg PO DAILY 03/06/21 [History Confirmed 06/07/22] flaxseed oil 1,000 mg capsule 1,000 mg PO DAILY 03/06/21 [History Confirmed 06/07/22] turmeric 400 mg capsule 400 mg PO DAILY 03/06/21 [History Confirmed 06/07/22] vitamin E 100 unit tablet 400 unit PO DAILY 03/06/21 [History Confirmed 06/07/22] zinc 50 mg tablet 50 mg PO DAILY 03/06/21 [History Confirmed 06/07/22] [facility] Medical History? Abdominal pain Altered taste Benign essential hypertension Cancer Cardiology follow-up encounter Cervical radiculopathy Dysphagia Gastric reflux History of breast cancer History of irregular heartbeat History of stress test History of supraventricular tachycardia Indigestion Leg cramps Lung nodule Lymphadenopathy Migraine headache Shortness of breath on exertion Unintentional weight loss Vitamin D deficiency Wears glasses Surgical History? History of appendectomy History of breast biopsy History of cardiac catheterization History of colonoscopy (~2019) History of dilation and curettage History of esophagogastroduodenoscopy (EGD) History of hemorrhoidectomy History of hysterectomy History of lumpectomy History of tubal ligation History of ventral hernia repair (~2016) S/P ventral herniorrhaphy Family History? Father CVA (cerebral vascular accident) Colon cancer DiabetesSister Colon cancerGrandfather Colon cancerAunt Colon cancerMother Heart disease Social History? Smoking Status:? Never smoker alcohol intake:? never substance use type:? does not use HPI HPI HPI: 77-year-old female presents on her own account with concerns about abdominal pain.? We have records from [facility] where the patient's been having hematuria and recurrent urinary tract infections.? By report of CT scan the abdomen on February 16, 2022 was unremarkable.? The patient has been seen as recently as April 29, 2022 with complaint of diffuse abdominal pain or suprapubic pain and moderate diffuse tenderness on exam.? 1.4 cm cyst was seen on CT the left lobe of the liver.? Focal wall thickening of the gallbladder fundus with what appears to be intramural cysts consistent with focal adenomyomatosis..? Biliary ducts are unremarkable.? No adenopathy.? Mild distention of the rectosigmoid.? Evidence of previous hysterectomy.? Abdominal wall soft tissues appear normal. It is of note that she had a 4.[address] mesh repair of a ventral hernia March 11, 2021 per myself.? She did have evidence of urinary tract infection at that time as well.? There was some discussion about a postoperative hematoma at that site.? It is of additional note that she has had a remote evidence of a previous right lower quadrant spigelian hernia repair.? No evidence of recurrence. The patient had a cystoscopy done at [facility] and there is felt to be possible bowel or polyp pushing into the bladder.. The patient complains of a nonspecific aching low abdominal pain..? It is well- known that over the years she has had chronic abdominal pain.? On this occasion however she continues to lose weight.? She does not state that the pain is aggravated with eating or defecating.? She states that maybe a month or so ago she had a period of time where she had very dark-colored stools.? She denies fever or chills or sweats.? She states that her urologist saw something bulging into the urinary bladder did not have an etiology.? The patient states that she had a previous colonoscopy at some point done by Dr. Usman hogue at [facility].? She states that she has a family history of colon cancer. She does take Excedrin Migraine for headaches.? She denies knowingly having previous peptic ulcer disease. Patient complains of brain fog ROS General General: No weight change, appetite, fatigue, colon cancer, breast cancer or weakness HEENT HEENT: No difficulty swallowing, eye injury, eye surgery, swollen glands or hoarseness Endo Endocrine: No thyroid disease, diabetes mellitus, thyroid cancer, Hair loss, heat intolerance or cold intolerance Skin Skin: No rash or changing moles Breast Breast: No left breast lump, right breast lump, nipple discharge, breast pain, abnormal mammogram, abnormal US or breast enlargement Musc Musculoskeletal: No back problems, arthritis, rheumatoid arthritis, gout or joint pain Cardio Cardiovascular: No murmur, pacemaker, heart disease, atrial fibrillation, high blood pressure, heart attack, heart stent, palpitations, shortness of breat with exertion or chest pain Psych Psychiatric: No depression, anxiety or hearing voices Resp Respiratory: No shortness of breath, No sleep apnea, No cough, No COPD, No asthma, No emphysema and No wheezing Gastro Gastrointestinal: No abdominal pain, No nausea or vomiting, No diarrhea, No constipation, No blood in stool, No acid reflux, No hemorrhoids, No ulcers, No gallbladder problem and No black,tarry stools Brent Hematologic: No blood thinners, No blood disorders, No bleeding, No anemia and No blood clots Neuro Neurologic: No system reviewed and no additional complaints, except as documented, No as per HPI, No abnormal gait, No abnormal hearing, No abnormal movements, No abnormal speech, No behavioral changes, No burning sensations, No confusion, No convulsions, No disequilibrium, No dizziness, No localized weakness, No frequent falls, No headache(s), No lack of coordination, No loss of vision, No memory loss, No numbness, No other visual disturbances, No radicular pain, No restless legs, No sensory deficit, No syncope, No tingling, No tremor(s), No weakness and No other Exam Const General: cooperative, comfortable and no acute distress Nutritional Appearance: underweight Other: Patient has clearly lost significant weight since I have seen her last. [facility] Head: normal to inspection Eyes General: appearance normal, both eyes and all related structures Neck Neck: normal visual inspection Chest Chest palpation & inspection: normal inspection of the chest Resp Effort & Inspection: normal respiratory effort Auscultation: clear to auscultation bilaterally Cardio Rate: regular rate Rhythm: regular rhythm GI Palpation: soft and no hepatosplenomegaly Musc Cervical Spine: normal cervical lordosis Skin General: no rashes or lesions noted Neuro General: patient alert, patient awake and patient oriented x3 Extrem General: no calf tenderness Psych Appearance: grossly normal Assessment and Plan Assessment and Plan (1) Abdominal pain: ?Status:?Acute ?Qualifiers: ?Abdominal location:?epigastric? Qualified Code(s):?R10.13 - Epigastric pain ?Plan: The patient does not appear to have an acute surgical abdomen.? She certainly has lost weight since our most recent interchange.? I believe it is reasonable to pursue a combined esophagogastroduodenoscopy and colonoscopy for her.? The dark-colored stool history of interest.? The weight loss of interest.? The bulging into the urinary bladder probably just simply bowel but feel that it would be reasonable based upon family history to pursue the colonoscopy. She is aware of the technique, benefit, risk, alternatives.? She has had an opportunity to ask and have questions answered. If this is not remarkable that I would anticipate ongoing medical care as I am not perceiving acute surgical issues at this time. The CT scan demonstrating some possible adenomyosis of the gallbladder does not fit the patient's concerns and she does not have postprandial discomfort nor discomfort in the correct location. It was not clarified to me the etiology of the patient's hematuria. Jesus Shipman M.D., F.A.C.S. I have examined the patient and the H&P has been reviewed. There are no clinical changes since date of exam. Jesus Shipman M.D., F.A.C.S.
[2022-06-18] MEDS: Lactated Ringers 1,000 ML 15 ML IV (10:45)
--- NOTE | 2022-06-18 10:45 | IMM_PTH ---
PATIENT: ANGELLA NELSON LOC: [facility] U#:[id number] AGE/SX: 77/F ROOM: RE06/18/[address]: Dr. Jesus Shipman MD : 1945 BED: DIS: 06/18/2022 SPEC #: [id number] RECD: 06/18/22 13:36 STATUS: VERÓNICA REQ #: [id number] ABELARDO: 06/18/22 10:[address]: Jesus Shipman DEPT: IMMUNOHISTOCHEMISTRY RECD BY: Mary Grace Ball ENTERED: 06/18/22 13:37 SP TYPE: IMMUNO OTHR DR: ALTA NGUYEN, RONNIE Tissues: B - Stomach, NOS Procedures: H Pylori (initial) PHYSICIAN & INSTITUTION [place] [id number] SPECIMEN INFORMATION: Tissue Source: B ? Gastric antrum Clinical Info: Abdominal pain Specimen Number: [id number] CPT code: 57484 METHODOLOGY: Deparaffinized sections of prefer/formalin-fixed tissue or PAP/DQ stained slides are incubated with monoclonal/polyclonal antibodies/oligonucleotide probes. Localization is made via biotin free immunoperoxidase method. Appropriate controls are performed and reacted as expected. Results on target cell population are indicated in the following table: RESULTS: ANTIBODY / CLONE RESULT Block B H Pylori (polyclonal) negative These tests were developed and their performance characteristics determined by [facility]. They may not have been cleared or approved by the U.S. Food and Drug Administration. The FDA has determined that such clearance or approval is not necessary. The above immunohistochemical/dualISH markers are ordered and reviewed by the Pathologist. INTERPRETATION: B. Gastric antrum, biopsy: Negative for Helicobacter pylori organisms. AM:walker 06/21/2022
--- NOTE | 2022-06-18 10:45 | EGD_PTH ---
PATIENT: ANGELLA NELSON LOC: [facility] U#:[id number] AGE/SX: 77/F ROOM: RE06/18/[address]: Dr. Jesus Shipman MD : 1945 BED: DIS: 06/18/2022 SPEC #: [id number] RECD: 06/18/22 12:58 STATUS: VERÓNICA PAPPAS #: [id number] ABELARDO: 06/18/22 10:[address]: Jesus Shipman DEPT: SURGICAL PATHOLOGY RECD BY: Dona Tarango ENTERED: 06/18/22 13:19 SP TYPE: EGD BIOPSY OTHR DR: RONNIE SILVESTRE Tissues: A - Duodenum, NOS B - Gastric mucous membrane C - Esophagus, NOS D - Cecum, NOS Procedures: Special Stain Group II Surgery Specimen Level IV Alcian Blue/PAS (control) HEADER OPERATION: Colonoscopy with biopsy, EGD ([facility]), biopsy PRE-OP DIAGNOSIS: Abdominal pain TISSUE SUBMITTED: A ? Duodenum biopsy, B ? Gastric antrum biopsy for H. pylori and path, C ? Distal esophagus, D ? Cecal polyp biopsy MICROSCOPIC DIAGNOSIS A. Duodenum, biopsy: No pathologic change. B. Gastric antrum, biopsy: Mild chronic gastritis. See comment. C. Distal esophagus, biopsy: Gastroesophageal junctional mucosa with mild chronic inflammation. No evidence of goblet cell metaplasia. See comment. D. Cecal polyp, biopsy: Tubular adenoma. AM:walker 06/21/2022 COMMENT B. The results of immunohistochemistry for Helicobacter pylori will be reported separately ([id number]). C. Alcian blue/PAS stain with matched control supports the above diagnosis. MICROSCOPIC DESCRIPTION Slides are reviewed. GROSS DESCRIPTION A - Received in fixative is one container labeled with the patient's name and designated biopsy duodenum. The specimen consists of one irregular fragment of light jensen soft tissue that measures 0.3 x 0.3 x 0.1 cm. The specimen is totally submitted in one cassette. B - Received in fixative is one container labeled with the patient's name and designated biopsy gastric antrum. The specimen consists of one irregular fragment of light jensen soft tissue that measures 0.2 x 0.2 x 0.1 cm. The specimen is totally submitted in one cassette. C - Received in fixative is one container labeled with the patient's name and designated distal esophagus. The specimen consists of two irregular fragments of light jensen soft tissue that in aggregate measure 0.6 x 0.3 x 0.1 cm. The specimen is totally submitted in one cassette. D - Received in fixative is one container labeled with the patient's name and designated cecal polyp biopsy. The specimen consists of two irregular fragments of light jensen soft tissue that in aggregate measure 0.4 x 0.2 x 0.1 cm. The specimen is totally submitted in one cassette. / SJ:rg 06/18/2022 TC:5 CPT: 98832 x4, 74646
--- NOTE | 2022-06-18 11:40 | OP.EGD_ITS ---
Patient Name: Lyly Mac Procedure Date: 06/18/2022 10:58 AM Date of : 1945 Age: 77 Procedure: Upper GI endoscopy Indications: Generalized abdominal pain Providers: Jesus Shipman MD Medicines: See the Anesthesia note for documentation of the administered medications Complications: No immediate complications. Procedure: Pre-Anesthesia Assessment: - Prior to the procedure, a History and Physical was performed, and patient medications and allergies were reviewed. The patient's tolerance of previous anesthesia was also reviewed. The risks and benefits of the procedure and the sedation options and risks were discussed with the patient. All questions were answered, and informed consent was obtained. Prior Anticoagulants: The patient has taken no previous anticoagulant or antiplatelet agents. ASA Grade Assessment: III - A patient with severe systemic disease. After reviewing the risks and benefits, the patient was deemed in satisfactory condition to undergo the procedure. After obtaining informed consent, the endoscope was passed under direct vision. Throughout the procedure, the patient's blood pressure, pulse, and oxygen saturations were monitored continuously. The Colonoscope was introduced through the mouth, and advanced to the second part of duodenum. The upper GI endoscopy was accomplished without difficulty. The patient tolerated the procedure well. Scope In: 11:10:41 AM Scope Out: 11:16:57 AM Total Procedure Duration Time 0 hours 6 minutes 16 seconds Findings: Esophagitis with no bleeding was found 41 cm from the incisors. Biopsies were taken with a cold forceps for histology. Diffuse mild inflammation characterized by erythema was found in the gastric antrum. Biopsies were taken with a cold forceps for histology. The examined duodenum was normal. Biopsies were taken with a cold forceps for histology. Impression: - Reflux esophagitis. Biopsied. - Chronic gastritis. Biopsied. - Normal examined duodenum. Biopsied. Recommendation: - Discharge patient to home. - Resume previous diet. - Continue present medications. - Use Prilosec (omeprazole) 20 mg PO daily. Procedure Code(s): --- Professional --- 60083, Esophagogastroduodenoscopy, flexible, transoral; with biopsy, single or multiple Diagnosis Code(s): --- Professional --- K21.0, Gastro-esophageal reflux disease with esophagitis K29.50, Unspecified chronic gastritis without bleeding R10.84, Generalized abdominal pain CPT copyright 2017 [employer]. All rights reserved. The codes documented in this report are preliminary and upon rn clinical documentation specialist review may be revised to meet current compliance requirements. Jesus Shipman MD 06/18/2022 11:40:00 AM This report has been signed electronically. Number of Addenda: 0 Note Initiated On: 06/18/2022 10:58 AM
--- NOTE | 2022-06-18 11:40 | OP.CCLET_ITS ---
06/18/2022 Martha Spaulding Re : Upper GI endoscopy procedure for Lyly Vital This procedure was performed on Saturday, June 18, 2022. My impressions and recommendations are as follows: Impressions : - Reflux esophagitis. Biopsied. - Chronic gastritis. Biopsied. - Normal examined duodenum. Biopsied. Recommendations : - Discharge patient to home. - Resume previous diet. - Continue present medications. - Use Prilosec (omeprazole) 20 mg PO daily. My findings are described in the full procedure note, which is enclosed. If I can be of further assistance, please feel free to contact me at Doctor phone number(s): Work: . Sincerely, Jesus Shipman MD 06/18/2022 11:40:00 AM This report has been signed electronically.
--- NOTE | 2022-06-18 11:44 | OP.COLON_ITS ---
Patient Name: Lyly Mac Procedure Date: 06/18/2022 11:17 AM Date of : 1945 Age: 77 Procedure: Colonoscopy Indications: Generalized abdominal pain Providers: Jesus Shipman MD Patient Profile: Last Colonoscopy: date unknown. Complications: No immediate complications. Procedure: Pre-Anesthesia Assessment: - Prior to the procedure, a History and Physical was performed, and patient medications and allergies were reviewed. The patient's tolerance of previous anesthesia was also reviewed. The risks and benefits of the procedure and the sedation options and risks were discussed with the patient. All questions were answered, and informed consent was obtained. Prior Anticoagulants: The patient has taken no previous anticoagulant or antiplatelet agents. ASA Grade Assessment: III - A patient with severe systemic disease. After reviewing the risks and benefits, the patient was deemed in satisfactory condition to undergo the procedure. After I obtained informed consent, the scope was passed under direct vision. Throughout the procedure, the patient's blood pressure, pulse, and oxygen saturations were monitored continuously. The Colonoscope was introduced through the anus and advanced to the cecum, identified by appendiceal orifice and ileocecal valve. The colonoscopy was performed without difficulty. The patient tolerated the procedure well. The quality of the bowel preparation was good. The ileocecal valve was photographed. Scope In: 11:19:10 AM Scope Withdrawal Time 0 hours 6 minutes 52 seconds Scope Out: 11:33:06 AM Total Procedure Duration Time 0 hours 13 minutes 56 seconds Findings: Hemorrhoids were found on perianal exam. A 4 mm polyp was found in the cecum. The polyp was sessile. The polyp was removed with a cold biopsy forceps. Resection and retrieval were complete. Multiple diverticula were found in the sigmoid colon and descending colon. Impression: - Hemorrhoids found on perianal exam. - One 4 mm polyp in the cecum, removed with a cold biopsy forceps. Resected and retrieved. - Diverticulosis in the sigmoid colon and in the descending colon. Recommendation: - Discharge patient to home. - Resume previous diet. - Continue present medications. - Repeat colonoscopy is not recommended due to current age (66 years or older) for screening purposes. Procedure Code(s): --- Professional --- 13278, Colonoscopy, flexible; with biopsy, single or multiple Diagnosis Code(s): --- Professional --- K64.9, Unspecified hemorrhoids D12.0, Benign neoplasm of cecum R10.84, Generalized abdominal pain K57.30, Diverticulosis of large intestine without perforation or abscess without bleeding CPT copyright 2017 [employer] [place] [employer]. All rights reserved. The codes documented in this report are preliminary and upon reducing system operator review may be revised to meet current compliance requirements. Jesus Shipman MD 06/18/2022 11:43:34 AM This report has been signed electronically. Number of Addenda: 0 Note Initiated On: 06/18/2022 11:17 AM
--- NOTE | 2022-06-18 11:44 | OP.CCLET_ITS ---
06/18/2022 Martha Spaulding Re : Colonoscopy procedure for Lyly Vital This procedure was performed on Saturday, June 18, 2022. My impressions and recommendations are as follows: Impressions : - Hemorrhoids found on perianal exam. - One 4 mm polyp in the cecum, removed with a cold biopsy forceps. Resected and retrieved. - Diverticulosis in the sigmoid colon and in the descending colon. Recommendations : - Discharge patient to home. - Resume previous diet. - Continue present medications. - Repeat colonoscopy is not recommended due to current age (66 years or older) for screening purposes. My findings are described in the full procedure note, which is enclosed. If I can be of further assistance, please feel free to contact me at Doctor phone number(s): Work: . Sincerely, Jesus Sihpman MD 06/18/2022 11:43:34 AM This report has been signed electronically.
== END 2022-06-18 13:00 | disposition home or self-care (01) ==
LOC: EN 10:07 → AC 10:08
PROVIDERS: PCP Nurse Practitioner Family; Referring Provider Nurse Practitioner Family; Visit Provider Surgery
PROC: 0DJD8ZZ Inspection of Lower Intestinal Tract, Via Natural or Artificial Opening Endoscopic (ICD-10-PCS; CPT 45378; principal; 2022-06-18 10:40)
DX: K29.50 Unspecified chronic gastritis without bleeding (principal); K21.00 Gastro-esophageal reflux disease with esophagitis, without bleeding; Z80.0 Family history of malignant neoplasm of digestive organs; K64.9 Unspecified hemorrhoids; K57.30 Diverticulosis of large intestine without perforation or abscess without bleeding; R31.9 Hematuria, unspecified; R10.84 Generalized abdominal pain; D12.0 Benign neoplasm of cecum
CPT/HCPCS: 43239; 45380; 88305; 88313; 88342; J7120; J2405

== ENCOUNTER → 2023-01-07 | Outpatient (CLI) | payer MEDICARE, BC, SELFPAY ==
--- NOTE | 2023-01-07 14:03 | BI_ITS ---
MAMMOGRAPHY - BILATERAL SCREENING REASON FOR EXAM: Female, 77 years old. Routine annual screening examination. PERTINENT HISTORY: Personal history of breast cancer. Prior left lumpectomy and radiation treatment. Sister with breast cancer. Aunt with breast cancer. TECHNIQUE: Digital bilateral breast evan (3D mammographic acquisition) in the CC and MLO projections. 2-D mediolateral oblique (MLO) and craniocaudad (CC) views of both breasts were obtained. CAD: Full Field Digital Mammography with Computer Added Detection was performed. COMPARISON: Comparison is made with prior study November 30, 2021 and November 27, 2020. FINDINGS: Breast Composition: There are scattered areas of fibroglandular density. There are no dominant masses or suspicious calcifications. The patient is status post lumpectomy in the deep upper lateral aspect of the left breast. Stable postoperative scarring is seen. No other significant abnormalities are identified. There has been no significant change since the prior study. BI/SCRN MAMM (CAD)W/EVAN BILAT IMPRESSION: Stable bilateral screening mammogram. Yearly follow-up mammogram recommended. (A) ASSESSMENT CATEGORY: BIRADS Category 2: Benign. A letter regarding these results will be sent to the patient by the facility within 30 days. Approximately 10% of breast cancers are not detected by mammography. A normal mammogram should not delay biopsy of a clinically suspicious abnormality. [id number] Electronically Signed: Jeff Garcia MD at 15:11 EST ,
== END | disposition home or self-care (01) ==
LOC: OPBI 14:01
PROVIDERS: PCP Nurse Practitioner Family; Referring Provider Internal Medicine Hematology & Oncology; Visit Provider Internal Medicine Hematology & Oncology
DX: Z12.31 Encounter for screening mammogram for malignant neoplasm of breast (principal); Z85.3 Personal history of malignant neoplasm of breast; Z80.3 Family history of malignant neoplasm of breast
CPT/HCPCS: 77063; 77067

== ENCOUNTER 2023-01-30 22:00 | Emergency (ER) | payer MEDICARE, BC, SELFPAY ==
[2023-01-30 22:01] VITALS: BP 155/82; PULSE 91; RESP 16; TEMP 36.6; O2SAT 96; BMI 18.0
--- NOTE | 2023-01-30 23:07 | EX.ED.DYSGE1 ---
HPI History of Present Illness Chief Complaint: Confusion Narrative Narrative: 77-year-old female presents with her daughter because of reported confusion. She states that she is having problems with her memory for the last few weeks. She states when she is home alone, she started having anxiety about that, and the fact that she cannot remember things and becomes panicked. She relates history that her has been at [facility] for the last week. Yesterday, she was seen and evaluated in the emergency department where they did nothing for me but she had been seen for reported weight loss. Her daughter relates history that she called her son in [place] this evening, and told her that she needed to come back to the emergency department, and she told her daughter she wanted to come to [place] emergency department. While she is no longer complaining about weight loss, she is more concerned with her memory loss that has been ongoing for the last few weeks if not longer, and the fact that she becomes panicked afterwards. Her daughter states that she has been buying the patient food, but she does not eat it. She feels that is the reason for her weight loss. They also state that they did a CT scan of her abdomen and checked her urine, did laboratory work and only found that her sodium was slightly low yesterday. The patient denies any dysuria or hematuria, but reports these episodes of memory loss. [facility] Medical History Abdominal pain Altered taste Benign essential hypertension Cancer Cardiology follow-up encounter Cervical radiculopathy Dysphagia Gastric reflux History of breast cancer History of irregular heartbeat History of stress test History of supraventricular tachycardia Indigestion Leg cramps Lung nodule Lymphadenopathy Migraine headache Shortness of breath on exertion Syncope Unintentional weight loss Vitamin D deficiency Wears glasses Home Medications ulpozyh-ivofmygbivxwb-csfmxtar 250 mg-250 mg-65 mg tablet 1 ea PO PRN PRN MIGRAINES 02/06/16 [History Last Taken Unknown] ascorbic acid (vitamin C) 1,000 mg tablet 1 g PO DAILY 02/27/20 [History Last Taken Unknown] magnesium oxide 400 mg PO DAILY 02/27/20 [History Last Taken Unknown] cholecalciferol (vitamin D3) 25 mcg (1,000 unit) capsule 25 mcg PO DAILY 03/03/20 [History Last Taken Unknown] cyanocobalamin (vitamin B-12) 25 mcg tablet 50 mcg PO DAILY 03/06/21 [History Last Taken Unknown] vitamin E 100 unit tablet 400 unit PO DAILY 03/06/21 [History Last Taken Unknown] zinc 50 mg tablet 50 mg PO DAILY 03/06/21 [History Last Taken Unknown] potassium chloride 20 mEq tablet,extended release(part/cryst) 20 meq PO DAILY 06/14/22 [History Last Taken Unknown] Allergy/AdvReac Type Severity Reaction Status Date / Time aspirin [From Fiorinal] Allergy Unknown Verified 01/30/23 22:04 butalbital [From Fiorinal] Allergy Unknown Verified 01/30/23 22:04 caffeine [From Fiorinal] Allergy Unknown Verified 01/30/23 22:04 chlorpromazine Allergy Unknown Verified 01/30/23 22:04 [From Thorazine] diatrizoic acid Allergy NEEDS Verified 01/30/23 22:04 FOLLOW-UP etodolac [From Lodine] Allergy Unknown Verified 01/30/23 22:04 Gadolinium-MRI Contrast Allergy Other Verified 01/30/23 22:04 Medium hydrocodone [From Vicodin] Allergy Unknown Verified 01/30/23 22:04 methylprednisolone Allergy Unknown Verified 01/30/23 22:04 [From Solu-Medrol] nabumetone [From Relafen] Allergy Unknown Verified 01/30/23 22:04 prednisone Allergy Other Verified 01/30/23 22:04 promethazine [From Phenergan] Allergy Unknown Verified 01/30/23 22:04 propoxyphene Allergy Unknown Verified 01/30/23 22:04 [From Darvocet-N] verapamil Allergy Unknown Verified 01/30/23 22:04 ibuprofen AdvReac Upset Verified 01/30/23 22:04 Stomach Family History Father CVA (cerebral vascular accident) Colon cancer Diabetes Sister Colon cancer Grandfather Colon cancer Aunt Colon cancer Mother Heart disease Surgical History History of appendectomy History of breast biopsy History of cardiac catheterization History of colonoscopy (~2019) History of dilation and curettage History of esophagogastroduodenoscopy (EGD) History of hemorrhoidectomy History of hysterectomy History of lumpectomy History of tubal ligation History of ventral hernia repair (~2017) S/P ventral herniorrhaphy Social History Smoking Status: Never smoker alcohol intake: never substance use type: does not use ROS ROS ED ROS Narrative Constitutional: No fever, no chills. HEENT: No sore throat. No neck pain. No loss of vision. No rhinorrhea. Cardiovascular: No chest pain. No palpitations. No pedal edema. Respiratory: No cough, no shortness of breath. Abdominal: No abdominal pain. No nausea. No vomiting. Genitourinary: No dysuria. No hematuria. Musculoskeletal: No myalgias. No arthralgias. Neurologic: No headaches. No dizziness. No lightheadedness. Reported memory loss. Skin: No rash. No change in color. Psychiatric: No depression. Positive anxiety when loses memory, forgets things.. EXAM Physical Exam Narrative Exam Narrative: Afebrile. Vital signs noted. Mildly cachectic. HEENT: Normocephalic. Atraumatic. PERRL, EOMI. Neck soft and supple. No point tenderness or step off. Cardiovascular: Regular rate and rhythm. No murmurs, rubs, or gallops appreciated. Respiratory: No tachypnea. Lungs clear to auscultation bilaterally. Gastrointestinal: Abdomen soft, nontender, with normoactive bowel sounds. No rebound or guarding. Neurological: Awake. Alert. Oriented x 3. Nonfocal, nonlateralizing. Skin: No rash. Normal color. No pallor. Musculoskeletal: No pedal edema. Full range of motion extremities. Const Vital Signs: 01/30/23 22:01 Temperature 98 F Temperature Source Temporal Pulse Rate 91 Respiratory Rate 16 Blood Pressure 155/82 H Blood Pressure Mean 106 Pulse Ox 96 Oxygen Delivery Method Room Air MDM MDM MDM Narrative Medical decision making narrative: I had a lengthy discussion with the patient and her daughter. As she reportedly had hyponatremia yesterday, I will recheck her sodium with a BMP, and a CBC. I do not feel repeat UA is indicated. More for reassurance, patient is concerned that there is something structurally wrong with her brain. However, she has a normal neurological examination so I have low suspicion for stroke or mass. CT of the brain will be obtained. I reviewed her laboratory work and she has a normal white count of 5.0, hemoglobin stable at 11.2, platelet count 191, review of her electrolyte panel shows that her sodium is now normal at 141, potassium 4.2, chloride slightly elevated at 108 which I think is nonspecific, glucose is appropriately elevated at 112 with an anion gap low at 2. I reviewed the CT report which shows no evidence of an acute hemorrhage or injury. As her is admitted for COVID, although she is asymptomatic, COVID swab was sent and she is also positive. At this point in time, I feel she be discharged safely home with follow-up. I do not feel that she requires admission or observation at this time. I do feel that stress and anxiety plays some role in her forgetfulness afterwards. Patient and daughter are agreeable to the plan. They will follow-up with her primary care provider soon as possible. Return instructions were reviewed. Disposition is discharged home in stable condition. History & Record Review Discussion w/independent historian: Patient and Family (Daughter) Additional record(s) reviewed:: Prior ED visit and Prior labs Lab Data Attestation: I reviewed the patient's lab results. Labs: Laboratory Results - last 24 hr 01/30/23 23:29 WBC 5.0 RBC 3.70 L Hgb 11.2 L Hct 35.0 L MCV 94.6 MCH 30.3 MCHC 32.0 RDW Std Deviation 44.4 H RDW Coeff of Gina 12.8 Plt Count 191 MPV 10.8 Immature Gran % (Auto) 0.400 Neut % (Auto) 63.4 Lymph % (Auto) 20.6 Hubbard % (Auto) 14.4 H Eos % (Auto) 0.8 Baso % (Auto) 0.4 Absolute Neuts (auto) 3.2 Absolute Lymphs (auto) 1.03 Nucleated RBC % 0 Sodium 141 Potassium 4.2 Chloride 108 H Carbon Dioxide 31.0 Anion Gap 2 L BUN 30 H Creatinine 0.58 Estim Creat Clear Calc 31.71 Est GFR (MDRD) Af Amer 130 Est GFR (MDRD) Non-Af 108 BUN/Creatinine Ratio 52.2 H Glucose 112 H Calcium 9.2 Radiography Diagnostic Testing: Clinical Impression(s) from Imaging Studies Brain CT 01/30/23 23:40 IMPRESSION: No CT evidence of acute intracranial hemorrhage or injury. Mild senescent changes with atherosclerosis. Scattered acute sinus disease. Electronically Signed: Yuniel Santiago MD at 0:10 EST , Discharge Plan Triage Chief Complaint: Confusion ED Provider: Jose Eduardo Coronado Dx/Rx/DC Orders Clinical Impression: Anxiety, Confusion, COVID Instructions: ED Anxiety Reaction, ED Confusion Prescriptions: No Action magnesium oxide 400 mg magnesium capsule 400 mg PO DAILY ascorbic acid (vitamin C) 1,000 mg tablet 1 g PO DAILY [id number]-okrzfsdcenwwn-rusmixrp 1 EACH tablet 1 ea PO PRN PRN (Reason: MIGRAINES) cholecalciferol (vitamin D3) 25 MCG capsule 25 mcg PO DAILY zinc 50 mg Tablet 50 mg PO DAILY vitamin E 100 unit Tablet 400 unit PO DAILY cyanocobalamin (vitamin B-12) 25 mcg Tablet 50 mcg PO DAILY potassium chloride 20 MEQ tablet,ER particles/crystals 20 meq PO DAILY Primary Care Provider: ALTA NGUYEN Referrals: ALTA NGUYEN, BEAM DYER-C [Primary Care Provider] - As soon as possible Disposition Disposition: Home, Self Care
[2023-01-30 23:40] LABS: Absolute Lymphocyte Count 1.03 X10^3/uL (0.83-4.51); Absolute Neutrophil Count 3.2 X10^3/uL (2.0-7.7); Basophil# 0.02 X10^3/uL; Basophil% 0.4 % (0-1); Eosinophil# 0.04 X10^3/uL; Eosinophils% 0.8 % (0-5); Hemoglobin 11.2 g/dL (12.0-15.0); Lymphocyte # 1.03 X10^3/ul (0.83-4.51); Lymphocyte % 20.6 % (19-41); Mean Corpuscular Hgb 30.3 pg (27.0-32.0); Mean Corpuscular Volume 94.6 fL (81-99); Mean Platelet Vol. 10.8 fl (6.2-12.0); Monocyte# 0.72 X10^3/uL; Monocyte% 14.4 % (0-10); NRBC Flagged by Analyzer 0 % (0-5); Neutrophil # 3.16 X10^3/uL (2.7-7.7); Neutrophil % 63.4 % (47-70); Platelet Count 191 K/mm3 (150-450); RBC Distribution Width CV 12.8 % (11.6-14.6); RBC Distribution Width SD 44.4 fl (35.1-43.9)
--- NOTE | 2023-01-30 23:40 | CT_ITS ---
INDICATION: Memory loss, confusion EXAMINATION: CT BRAIN - CT Head or Brain W/O Contrast Injection TECHNIQUE: Multiple axial images were obtained of the head without intravenous contrast. A radiation dose optimization technique was used for this scan. IV Contrast dosage and agent: None. COMPARISON: None FINDINGS: BRAIN PARENCHYMA: No intra- or extra-axial hemorrhage. Symmetric mild senescent basal ganglial calcifications. No evidence of acute infarct. No intracranial mass or mass effect. Mild periventricular and subcortical white matter hypodense chronic small vessel white matter ischemic change. There is preservation of the soares/white matter interface. Posterior fossa structures are unremarkable. Carotid and vertebral atherosclerosis. CSF SPACES: Mild global cerebral volume loss. No hydrocephalus. Basal cisterns are patent. CALVARIUM, SKULL BASE, PARANASAL SINUSES AND MASTOID AIR CELLS: No acute osseous finding. Acute sinus disease and ethmoid sinuses, right greater than left, and right maxillary sinus. Mastoid air cells are clear. ORBITS: Both globes, extraocular muscles, optic nerves and retrobulbar fat appear unremarkable. ASPECTS Score for Acute Strokes: 10 CT/Brain/Head without Contrast IMPRESSION: No CT evidence of acute intracranial hemorrhage or injury. Mild senescent changes with atherosclerosis. Scattered acute sinus disease. Electronically Signed: Yuniel Santiago MD at 0:10 EST ,
[2023-01-30 23:53] LABS: Anion Gap 2 (5-15); BUN 30 mg/dL (7-18); BUN/Creat Ratio 52.2 RATIO (10-20); Calcium,Total 9.2 mg/dL (8.5-10.1); Chloride 108 mmol/L (98-107); Creatinine, Serum 0.58 mg/dL (0.55-1.02); EST Glomerular Filtration Rate 108 mL/min (>60); Est Glom Filt Rate - Afr Amer 130 mL/min (>60); Estimated Creatinine Clearance 31.71 ml/min; Glucose 112 mg/dL (74-106); Potassium 4.2 mmol/L (3.5-5.1); Sodium Level 141 mmol/L (136-145)
[2023-01-31 01:38] VITALS: BP 140/80; PULSE 79; RESP 16; O2SAT 96
== END 2023-01-31 01:40 | disposition home or self-care (01) ==
PROVIDERS: Emergency Provider Emergency Medicine; PCP Nurse Practitioner Family; Visit Provider Emergency Medicine
DX: U07.1 COVID-19 (principal); F41.9 Anxiety disorder, unspecified; I10 Essential (primary) hypertension; R41.0 Disorientation, unspecified; Z85.3 Personal history of malignant neoplasm of breast
CPT/HCPCS: 70450; 80048; 85025; 87428; 99282; A4216